=== PATIENT | female | born 1975 | race Two or more races ===

== ENCOUNTER 2016-07-26 06:05 | Inpatient (IN) | payer BC ==
[~2016-07-26] VITALS: Ht 152.4 cm; Wt 84.6 kg
[2016-07-26] VITALS (15 sets, daily range): BP systolic 101–120; BP diastolic 53–67; PULSE 60–79; RESP 18–20; Ht 152.4 cm; Wt 84.6 kg
[~2016-07-26 06:05] MED LIST: ACET500C5 PO; CALC600T11 PO; FERR325C PO; NITR-58 PO; PRENAT PO
[2016-07-26] MEDS ORDERED: TERBUTALINE 1 MG/ML INJ SC ONE (06:41)
[2016-07-26] MEDS ORDERED: LACTATED RINGER'S 1,000 ML IV ONE (07:00)
[2016-07-26] MEDS ORDERED: MISOPROSTOL 200 MCG TAB PR PRN ×2 (07:00→09:30)
[2016-07-26] MEDS ORDERED: OXYTOCIN 30 UNITS/LR 500 ML BAG IV ONE (07:00)
[2016-07-26] MEDS ORDERED: CEFAZOLIN 2 GM/50 ML (PMX) 50 ML IV SCH (07:00)
[2016-07-26] MEDS ORDERED: METHYLERGONOVINE 0.2 MG INJ IM PRN ×2 (07:00→09:30)
[2016-07-26] MEDS ORDERED: OXYTOCIN 30 UNITS/LR 500 ML IV PRN ×2 (07:00→09:30)
[2016-07-26] MEDS ORDERED: TERBUTALINE 1 MG/ML INJ SC PRN (07:00)
[2016-07-26] MEDS ORDERED: CARBOPROST 250 MCG INJ IM PRN ×2 (07:00→09:30)
[2016-07-26] MEDS ORDERED: OXYTOCIN 30 UNITS/LR 500 ML IV SCH (07:00)
[2016-07-26] MEDS ORDERED: LACTATED RINGER'S 1,000 ML IV* SCH (07:00)
[2016-07-26 07:22] LABS: ADD UMIC YES; URINE BILIRUBIN (Dip) NEGATIVE (NEGATIVE); URINE BLOOD (Dip) 2+ (NEGATIVE); URINE COLOR LT. YELLOW (YELLOW); URINE GLUCOSE (Dip) NEGATIVE (NEGATIVE); URINE KETONES (Dip) 40 (NEGATIVE); URINE LEUKOCYTE ESTERASE (Dip) TRACE (NEGATIVE); URINE NITRITE (Dip) NEGATIVE (NEGATIVE); URINE TOTAL PROTEIN (Dip) NEGATIVE (NEGATIVE); URINE UROBILINOGEN (Dip) 0.2 E.U./dL (0.1-1.0)
[2016-07-26] MEDS ORDERED: FOL8 PO (07:24)
[2016-07-26] MEDS ORDERED: FERR325C PO (07:24)
[2016-07-26 07:26] LABS: BASOPHILS % 0.3 % (0.0-2.0); EOSINOPHILS # 0.3 10^3/ul (0.0-0.5); EOSINOPHILS % 3.2 % (0.0-7.0); HEMATOCRIT 31.7 % (37.0-47.0); LYMPHOCYTES # 1.3 10^3/ul (0.8-2.9); MEAN CORPUSCULAR HGB CONC 34.7 g/dl (32.0-37.0); MEAN CORPUSCULAR VOLUME 86.5 fl (82.0-101.0); MEAN PLATELET VOLUME 9.6 fl (7.4-10.4); MONOCYTE # 0.3 10^3/ul (0.3-0.9); MONOCYTES % 3.9 % (0.0-11.0); NEUTROPHIL # 6.8 10^3/ul (1.6-7.5); NEUTROPHILS % 77.6 % (39.0-77.0); PLATELET COUNT 196 10^3/UL (140-440); RED BLOOD COUNT 3.67 10^6/ul (4.20-5.40); RED CELL DISTRIBUTION WIDTH 14.3 % (11.5-14.5); UNCORRECTED WBC 8.7 10^3/ul (4.8-10.8); WHITE BLOOD COUNT 8.7 10^3/ul (4.8-10.8)
[2016-07-26 07:29] LABS: INR 0.95; PROTIME 12.7 Sec (12.2-14.2)
[2016-07-26 07:30] LABS: PARTIAL THROMBOPLASTIN TIME 26.6 Sec (25.0-35.0)
[2016-07-26] MEDS ORDERED: AMPICILLIN 2 GM/NS (PMX) 100 ML IVPB ONE (07:30)
[2016-07-26] MEDS ORDERED: BETAMET NA PHOS/AC(6 MG/ML) 5ML INJ IM ONE (07:30)
--- NOTE | 2016-07-26 07:33 | TRIAGE ---
OB Triage Datetime Report Generated by CPN: 07/26/2016 07:32 Datetime: 07/26/2016 07:02 Vaginal Exam Dilatation (cms): 5.0 Datetime: 07/26/2016 07:00 Time of Arrival: 07/26/2016 07:00 EGA: 34.1 Arrived By: Ambulatory Arrived From: Home Datetime: 07/26/2016 06:55 Vaginal Exam Dilatation (cms): 5.0 Effacement (%): 90 Station: -1 Exam By: Jonathon,RN Cervix, Consistency: Soft Cervix, Position: Midposition Datetime: 07/26/2016 06:40 Membrane Status: Intact Datetime: 07/26/2016 06:26 Stage of : OB Triage Assessment Type: Triage Maternal Assessment Level of Consciousness: Fully Conscious DTR's/Clonus: DTRs 2+; No Clonus Headache: Denies Blurred Vision: No Respiratory Effort: Unlabored; Regular Rhythm; Equal Expansion Breath Sounds, Left: Clear and Equal Breath Sounds, Right: Clear and Equal Nausea/Vomiting: Denies RUQ Epigastric Pain: Denies Lower Extremities Edema: None Degree: None Upper Extremities Edema: None Degree: None Facial Edema: None Temperature Route: Oral Fall Risk Assessment History of Falling: (0) No Secondary Diagnosis: (0) No Ambulatory Aid: (0) Bedrest/Nurse Assist IV Therapy: (0) No Gait: (0) Normal/Bedrest/Immobile Mental Status: (0) Oriented to Own Ability Fall Score: 0 Fall Risk Score Definition: No Risk: No action required Pain Assessment Pain Scale: 9 Pain Presence: Intermittent Pain Type: Cramping; Contraction Pain Location: Abdomen; Back Pain Relief Measures: Comfort Measures Datetime: 07/26/2016 06:23 Time of Arrival: 07/26/2016 06:05 EGA: 34.1 Arrived By: Wheelchair Arrived From: Home Chief Complaint: UCs q5mins since 0200 Movement: Present Contractions: Regular Time Contractions Began: 07/26/2016 02:00 Contractions: q5mins Rupture of Membranes: Denies Vaginal Bleeding: Small Vaginal Discharge: Present Abdominal Trauma: Not Applicable Patient Complaints: Contractions; Cramping Time Provider Notified: 07/26/2016 06:34 Provider Notified: Initial Plan: IV hydration, UA, urine culture, urine tox Datetime: 07/21/2016 12:11 Stage of : OB Triage Labor Evaluation Frequency: 0 Monitor Mode: External Resting Tone [place]: Relaxed Heart Rate FHR Baseline Rate: 130 Monitor Mode: External US Variability: Moderate 6-25 bpm Accelerations: 15X15 Decelerations: None Category: Category I Datetime: 07/21/2016 11:33 Assessment Type: Triage Maternal Assessment Level of Consciousness: Fully Conscious DTR's/Clonus: DTRs 1+; No Clonus Headache: Denies Blurred Vision: No Respiratory Effort: Unlabored Breath Sounds, Left: Clear and Equal Breath Sounds, Right: Clear and Equal Nausea/Vomiting: Hx of Nausea/Vomiting (Annotations: X1 VOMITING IN AM) RUQ Epigastric Pain: Denies Lower Extremities Edema: None Degree: None Upper Extremities Edema: None Degree: None Facial Edema: None Fall Risk Assessment History of Falling: (0) No Secondary Diagnosis: (15) Yes (Annotations: CS X 1 HX OF CYSTS X 2. Pt denies ovarian cysts, states she does not know exactly where, but was told on L sie of lower abdomen) Ambulatory Aid: (0) Bedrest/Nurse Assist IV Therapy: (0) No Gait: (10) Weak Mental Status: (0) Oriented to Own Ability Fall Score: 25 Fall Risk Score Definition: Low Risk: Please see standard fall prevention interventions Datetime: 07/21/2016 11:28 Time of Arrival: 07/21/2016 11:06 EGA: 33.3 Arrived By: Ambulatory Arrived From: Home Chief Complaint: L sided low back pain Movement: Present Contractions: Denies/Absent Rupture of Membranes: Denies Vaginal Bleeding: None Vaginal Discharge: Denies Recent Sexual Intercouse: Denies Abdominal Trauma: Not Applicable Patient Complaints: Back Pain Time Provider Notified: 07/21/2016 11:33 Provider Notified: ESHAHEMALN Initial Plan: VS, EFM, Datetime: 07/21/2016 11:23 Stage of : OB Triage Monitor Mode: External Monitor Mode: External US Datetime: 07/21/2016 11:12 Stage of : OB Triage Datetime: 07/20/2016 07:35 EGA: 33.2 Datetime: 07/20/2016 07:26 Fall Score: 0 Fall Risk Score Definition: No Risk: No action required Datetime: 05/11/2016 17:57 Fall Score: 0 Fall Risk Score Definition: No Risk: No action required Datetime: 05/11/2016 17:48 EGA: 23.2
[2016-07-26 07:38] LABS: CONDITION 1
[2016-07-26 07:45] LABS: BARBITURATES NEGATIVE (NEGATIVE); BENZODIAZEPINES NEGATIVE (NEGATIVE); CANNABINOIDS NEGATIVE (NEGATIVE); COCAINE NEGATIVE (NEGATIVE); OPIATES NEGATIVE (NEGATIVE)
--- NOTE | 2016-07-26 07:47 | TRIAGE ---
OB Triage Datetime Report Generated by CPN: 07/26/2016 07:46 Datetime: 07/26/2016 07:00 EGA: 34.1 Frequency: 1-8 Monitor Mode: External Duration (sec)2399: 40-150 Quality: Moderate Pattern: Normal: <= 5 Contractions in 10 Minutes Resting Tone [place]: Relaxed FHR Baseline Rate: 150 Monitor Mode: External US Variability: Moderate 6-25 bpm Accelerations: 15X15 Decelerations: Early; Variable Category: Category II Datetime: 07/26/2016 06:34 Stage of : OB Triage
[2016-07-26 07:50] LABS: BACTERIA,URINE MODERATE
[2016-07-26] MEDS ORDERED: morphine SULFATE/PF (10 MG/10 ML) INJ ONE (08:08)
[2016-07-26] MEDS ORDERED: ONDANSETRON 4 MG INJ ONE (08:08)
[2016-07-26] MEDS ORDERED: OXYTOCIN 10 UNIT INJ ONE (08:08)
[2016-07-26] MEDS ORDERED: PHENYLephrine (100 MCG/ML) 5ML SYG ONE (08:08)
--- NOTE | 2016-07-26 08:37 | PREOPHP ---
DATE OF ADMISSION: 07/26/2016 HISTORY OF PRESENT ILLNESS: Ms. Arielle Delgadillo is a 41-year-old 2, para 1, EDC 09/05/2016 intrauterine at 34 weeks gestational age, presented to triage complaining of contractions since 2:00 this morning with vaginal spotting. In triage, she was examined to be 5 cm dilated, 90% effaced, -1 station. The patient is halie regularly, and she has a significant history 1 pre vious section. After explaining the risks, benefits, and alternatives, the patient agreed for a repeat delivery. Her care, according to the patient, took place at [facility]. PAST MEDICAL HISTORY: None. MEDICATIONS: 1. vitamins. 2. Calcium 3. Iron. 4. Folic acid. PAST SURGICAL HISTORY: x1 previous in 2014. OBSTETRIC HISTORY: x1 previous section. GYNECOLOGIC HISTORY: 13, regular, 3 to 4 days. History of fibroid uterus. Sexually active with 1 partner. SOCIAL HISTORY: Denies any smoking, drugs, or alcohol. FAMILY HISTORY: None. PHYSICAL EXAMINATION: HEENT: Within normal. LUNGS: CTA bilateral. CARDIOVASCULAR: S1, S2, regular rate, rhythm. ABDOMEN: Gravid, positive lower abdominal tenderness. Negative CVA bilateral. EXTREMITIES: Negative edema. No calf tenderness. VAGINAL: 5 cm dilated, 90% effaced, -1 station. ASSESSMENT: A 41-year-old 2, para 1, intrauterine at 34 weeks gestational age, pr eterm labor, previous section x1, advanced maternal age, desires an elective repeat cesarea n delivery versus vaginal after . PLAN: Consent for a repeat delivery. GBS prophylaxis, steroid treatment. Risks, benefits and alternatives explained. All questions were answered. Dictated By: RACHEL NICHOLAS/MAGDA Conf#: [id number] DID#: [id number]
[2016-07-26] MEDS ORDERED: FENTAnyl 50 MCG/ML VIAL ONE (08:44)
[2016-07-26 09:02] LABS: CBV Base Excess -2.6 mmol/L; Cord Blood Venous pO2 30.7 mmHG (15.0-45.0); MODE ROOM AIR; Sample Type CBV
[2016-07-26 09:03] LABS: AADO2 Cord Arterial 69.7 mmHg; Arterial Cord Blood pCO2 52.9 mmHG (25-50); CBA Base Excess -1.4 mmol/L; Cord Blood Arterial pO2 16.7 mmHG (15.0-45.0); MODE ROOM AIR; Sample Type CBA
[2016-07-26] MEDS: LACTATED RINGER'S 1,000 ML IV SCH ×3 (09:06→22:21)
[2016-07-26] MEDS: CEFAZOLIN 2 GM/50 ML (PMX) 50 ML IV SCH ×2 (09:23→17:18)
[2016-07-26] MEDS ORDERED: OXYCODONE/ACETAMINOPHEN (5/325) TAB PO PRN (09:30)
[2016-07-26] MEDS ORDERED: LANOLIN 7 GM TUBE TOP PRN (09:30)
--- NOTE | 2016-07-26 09:38 | OPRPT ---
Intraop Record Datetime Report Generated by CPN: 07/26/2016 09:38 Datetime: 07/26/2016 09:15 Sequential Compression Device: Yes Datetime: 07/26/2016 08:36 OR Number: 2 TIMES/PROCEDURE Arrive OR: 07/26/2016 08:05 Depart OR: 07/26/2016 09:12 Anesthesia Start: 07/26/2016 07:55 Anesthesia End: 07/26/2016 09:15 Surgery Start: 07/26/2016 08:29 Surgery End: 07/26/2016 09:04 Preoperative Dx: Repeat Surgical Procedure: Section Postoperative Dx: Post C/S Decision Time: 07/26/2016 07:00 C/S Decision to Incision (min): 89 Uterine Incision: 07/26/2016 08:29 PERSONNEL Surgeon: Alexander Braga Scrub: Michelle Escobar Anesthesia Care Provider: Artur Lambert Infant Care: See Delivery Summary for Care Providers Anesthesia Type: Spinal ASA Level: II RISK FOR INJURY Mode of Arrival: [place] Procedure Time Out: Correct Patient Identity; Correct Side and Site are Marked (if applicable); Acc urate Procedure Consent Form; Agreement on Procedure to be Done; Correct Patient Position; Relevant Images and Results are Properly Labeled and Displayed; Addressed Need to Administer Antibiotics or F luids for Irrigation; Safety Precautions Based on Patient History or Medication Use; Allergies Revie wed Preoperative Information: Preoperative Checklist Reviewed; Allergies Reviewed; NPO Status Verified RISK FOR ANXIETY/KNOW DEFICIT Emotional Status: Calm/Relaxed; Anxious Interventions: Provided Education Based on Age and Identified Needs; Communicated Patient Concerns to Appropriate Members of the Health Care Team; Explained Sequence of Events and Perioperative Routi ne; Evaluated Response to Instructions RISK FOR PAIN Pain Teaching: Instructed on Pain Scale Pain Scale: 9.0 Pain Location: Abdomen PREOPERATIVE OUTCOMES Preoperative Outcomes: Verbalizes/Indicates Decreased Anxiety, Ability to [place], Understanding of Pr ocedure and Sequence of Events. Questions Answered; Demonstrates Adequate Pain Management; Verbaliz es Comfort Related to Transfer/Transport RISK FOR INFECTION Skin Pre-Operative Site: Intact Clip: Clip Clip Location: Closed lower abdomen Prep: Yes Prep By: Marcela Sanchez RN Prep Solution: Povidone Iodine Catheter: Arnold Catheter Size: 16 Catheter Inserted By: Marcela Sanchez RNdomestic travel consultant Wound Class: I-Clean Dressing Type: Secured Gauze; Other Other Dressing Types: ABD/TELFA Risk for Impaired Skin Integrity Position in OR: Supine Bony Prominences Protection: Arms Tucked/Padded Positioning Devices: Leg [place] Risk for Hypothermia Warming Interventions: Warm [place](s); Warm Irrigation Risk for Injury Safety Straps Applied: Legs Sequential Compression Device: Yes Electrosurgical Unit: Yes Electrosurgical Unit Number: Lot #[id number] Exp:05/10/2018 Bipolar Number: [id number] Ground Pad Location: Right Lateral Thigh Coag Number: 55 Cut Number: 55 Estimated Blood Loss- OR (ml): 500 1st Count Sponge Count: Correct Needle Count: Correct Blade Count: Correct Instrument Count: Correct 2nd Count Sponge Count: Correct Needle Count: Correct Blade Count: Correct Instrument Count: Correct 3rd Count Sponge Count: Correct Needle Count: Correct Blade Count: Correct Instrument Count: Correct Final Count Sponge Count 4: Correct Needle Count 4: Correct Blade Count 4: Correct Instrument Count 4: Correct Surgeon Acknowledged Count: Yes Final Count Resolution: Count Correct Intraoperative Data Equipment: Non-Invasive Blood Pressure; Pulse Oximeter; EKG Blood Products Given: N/A Implants/Prosthesis Implants/Prosthesis: N/A Grafts: N/A Irrigation Irrigants: NACL; Sterile H2O Irrigation Amount: 2L Specimens Specimens: Yes Specimen Type: Placenta Specimen Type: L ovarian mass Cultures Cultures: N/A Postoperative Skin: Warm; Dry Pain Scale: 0 Condition: Awake; Alert Temperature: 97.9 Operative Outcomes: Patient's Surgery Performed Using Aseptic Technique and in a Manner to Prevent Cross-Contamination; Skin Remains Smooth, Intact, Non-reddened, Non-irritated, Free of Bruising; Cor e Body Temperature Remains in Expected Range Transfer To: L_D Other: L_D PACU Report Given to: Sade RN Datetime: 07/26/2016 06:39 Drug Allergies/Reactions: No Known Allergy (07/26/2016) Datetime: 07/20/2016 07:28 Drug Allergies/Reactions: No Known Allergy (07/20/2016) Datetime: 05/11/2016 18:02 Drug Allergies/Reactions: No Known Allergy (05/11/2016) Datetime: 05/11/2016 17:48 Drug Allergies/Reactions: DENIES Food Allergies/Reactions: DENIES Latex Allergies/Reactions: No Latex Allergies
--- NOTE | 2016-07-26 09:38 | DELSUM ---
Delivery Summary A-C Datetime Report Generated by CPN: 07/26/2016 09:38 DELIVERY PERSONNEL Senior Business Intelligence Analyst: Mao, Wendi MATERNAL INFORMATION Delivery Anesthesia: Spinal Medications in Delivery: See Anesthesia notes Estimated Blood Loss (ml): 500 Placenta Cultured: Yes Maternal Complications: None LABOR SUMMARY EDC: 09/05/2016 00:00 No. Babies in Womb: 1 Attempted: No Labor Anesthesia: None LABOR INFORMATION Reason for Induction: Not Applicable Onset of Labor: 07/26/2016 02:00 Oxytocin: N/A Group B Beta Strep: Not Done Antibiotics # of Doses: 2 Antibiotics Time of Last Dose: 0820 Steroids Given: None Reason Steroids Not Administered: Not Applicable MEMBRANES Membranes Rupture Method: Artificial Rupture of Membranes: 07/26/2016 08:32 Length of Rupture (hr): 0.02 Amniotic Fluid Color: Clear Amniotic Fluid Amount: Moderate Amniotic Fluid Odor: Normal STAGES OF LABOR Stage 3 hr: 0 Stage 3 min: 1 Total Time in Labor hr: 6 Total Time in Labor min: 34 CSECTION DELIVERY Primary Indication: Repeat Elective Secondary Indication: N/A CSection Urgency: Emergency CSection Incidence: Repeat Labor: Labor Elective: Elective CSection Incision: Lower Uterine Transverse BABY A INFORMATION Infant Delivery Date/Time: 07/26/2016 08:33 Method of Delivery: Born in Route : No : N/A Forceps: N/A Vacuum Extraction: N/A Shoulder Dystocia : No SHOULDER DYSTOCIA BABY A Infant Delivery Date/Time: 07/26/2016 08:33 PRESENTATION/POSITION BABY A Presentation: Cephalic Cephalic Presentation: Vertex Vertex Position: Right Occipital Posterior Breech Presentation: N/A PLACENTA INFORMATION BABY A Placenta Delivery Time : 07/26/2016 08:34 Placenta Method of Delivery: Manual Removal Placenta Status: Delivered SCORES BABY A Heart Rate 1 min: >100 bpm Resp Effort 1 min: Good Cry Reflex Irritability 1 min: Cough/Sneeze/Pulls Away Muscle Tone 1 min: Active Motion Color 1 min: Blue/Pale Resuscitation Effort 1 min: Tactile Stimulation SCORE 1 MIN: 8 Heart Rate 5 min: >100 bpm Resp Effort 5 min: Good Cry Reflex Irritability 5 min: Cough/Sneeze/Pulls Away Muscle Tone 5 min: Active Motion Color 5 min: Body [place], Extremit Blue Resuscitation Effort 5 min: Tactile Stimulation SCORE 5 MIN: 9 INFORMATION BABY A Gestational Age at Delivery: 34.1 Gestational Status: Late - 34- 36.6 Weeks Infant Outcome : Liveborn Infant Condition : Stable Infant Sex: Female IDENTIFICATION/MEDS BABY A ID Band Number: [id number] ID Band Location: Right Leg; Left Arm Sensor Applied: N/A Vitamin K Given : Not Given Erythromycin Given: Not Given WEIGHT/LENGTH BABY A Infant Birthweight (gm): 2540 Infant Weight (lb): 5 Weight (oz): 10 Length (in): 18.50 Infant Length (cm): 46.99 CORD INFORMATION BABY A No. Cord Vessels: 3 Nuchal Cord : N/A Cord Blood Taken: Yes Suction: Mouth; Nose ASSESSMENT BABY A Infant Complications: None Physical Findings at Delivery: Within Normal Limits Respirations: Appears Normal Value Analyst/ALS Called : No Infant Care By: Sherrill Villa RN Transferred To: NICU
--- NOTE | 2016-07-26 09:40 | DELSUM ---
Delivery Summary A-C Datetime Report Generated by CPN: 07/26/2016 09:40 DELIVERY PERSONNEL Directional Bore Operator: Mao, Wendi MATERNAL INFORMATION Delivery Anesthesia: Spinal Medications in Delivery: See Anesthesia notes Estimated Blood Loss (ml): 500 Placenta Cultured: Yes Maternal Complications: None LABOR SUMMARY EDC: 09/05/2016 00:00 No. Babies in Womb: 1 Attempted: No Labor Anesthesia: None LABOR INFORMATION Reason for Induction: Not Applicable Onset of Labor: 07/26/2016 02:00 Oxytocin: N/A Group B Beta Strep: Not Done Antibiotics # of Doses: 2 Antibiotics Time of Last Dose: 0820 Steroids Given: None Reason Steroids Not Administered: Not Applicable MEMBRANES Membranes Rupture Method: Artificial Rupture of Membranes: 07/26/2016 08:32 Length of Rupture (hr): 0.02 Amniotic Fluid Color: Clear Amniotic Fluid Amount: Moderate Amniotic Fluid Odor: Normal STAGES OF LABOR Stage 3 hr: 0 Stage 3 min: 1 Total Time in Labor hr: 6 Total Time in Labor min: 34 CSECTION DELIVERY Primary Indication: Repeat Elective Secondary Indication: N/A CSection Urgency: Emergency CSection Incidence: Repeat Labor: Labor Elective: Elective CSection Incision: Lower Uterine Transverse BABY A INFORMATION Infant Delivery Date/Time: 07/26/2016 08:33 Method of Delivery: Born in Route : No : N/A Forceps: N/A Vacuum Extraction: N/A Shoulder Dystocia : No SHOULDER DYSTOCIA BABY A Infant Delivery Date/Time: 07/26/2016 08:33 PRESENTATION/POSITION BABY A Presentation: Cephalic Cephalic Presentation: Vertex Vertex Position: Right Occipital Posterior Breech Presentation: N/A PLACENTA INFORMATION BABY A Placenta Delivery Time : 07/26/2016 08:34 Placenta Method of Delivery: Manual Removal Placenta Status: Delivered SCORES BABY A Heart Rate 1 min: >100 bpm Resp Effort 1 min: Good Cry Reflex Irritability 1 min: Cough/Sneeze/Pulls Away Muscle Tone 1 min: Active Motion Color 1 min: Blue/Pale Resuscitation Effort 1 min: Tactile Stimulation SCORE 1 MIN: 8 Heart Rate 5 min: >100 bpm Resp Effort 5 min: Good Cry Reflex Irritability 5 min: Cough/Sneeze/Pulls Away Muscle Tone 5 min: Active Motion Color 5 min: Body [place], Extremit Blue Resuscitation Effort 5 min: Tactile Stimulation SCORE 5 MIN: 9 INFORMATION BABY A Gestational Age at Delivery: 34.1 Gestational Status: Late - 34- 36.6 Weeks Infant Outcome : Liveborn Infant Condition : Stable Infant Sex: Female IDENTIFICATION/MEDS BABY A ID Band Number: [id number] ID Band Location: Right Leg; Left Arm Sensor Applied: N/A Vitamin K Given : Not Given Erythromycin Given: Not Given WEIGHT/LENGTH BABY A Infant Birthweight (gm): 2540 Infant Weight (lb): 5 Weight (oz): 10 Length (in): 18.50 Infant Length (cm): 46.99 CORD INFORMATION BABY A No. Cord Vessels: 3 Nuchal Cord : N/A Cord Blood Taken: Yes Suction: Mouth; Nose ASSESSMENT BABY A Infant Complications: None Physical Findings at Delivery: Within Normal Limits Respirations: Appears Normal Medical Office Technologist/ALS Called : No Infant Care By: Sherrill Villa RN Transferred To: NICU
[2016-07-26] MEDS ORDERED: ONDANSETRON 4 MG INJ IV PRN (10:00)
[2016-07-26] MEDS ORDERED: DIPHENHYDRAMINE 50 MG INJ IV PRN (10:00)
[2016-07-26] MEDS ORDERED: NALOXONE (0.4 MG/ML) INJ IV PRN (10:00)
[2016-07-26] MEDS ORDERED: morphine 2 MG INJ IV PRN (10:00)
--- NOTE | 2016-07-26 10:24 | OPRPT ---
Intraop Record Datetime Report Generated by CPN: 07/26/2016 10:23 Datetime: 07/26/2016 10:00 Sequential Compression Device: Yes Datetime: 07/26/2016 09:45 Sequential Compression Device: Yes Datetime: 07/26/2016 09:30 Sequential Compression Device: Yes Datetime: 07/26/2016 08:36 C/S Decision to Incision (min): 89
[2016-07-26] MEDS ORDERED: KETOROLAC 30 MG INJ IV PRN (12:00)
[2016-07-26] MEDS: IBUPROFEN 600 MG TAB PO SCH (12:00)
[2016-07-26] MEDS: KETOROLAC 30 MG INJ IV PRN ×2 (12:02→17:19)
--- NOTE | 2016-07-26 13:09 | DELSUM ---
Delivery Summary A-C Datetime Report Generated by CPN: 07/26/2016 13:09 DELIVERY PERSONNEL Micropaleontologist: Mao, Wendi MATERNAL INFORMATION Delivery Anesthesia: Spinal Medications in Delivery: See Anesthesia notes Estimated Blood Loss (ml): 500 Placenta Cultured: Yes Maternal Complications: None LABOR SUMMARY EDC: 09/05/2016 00:00 No. Babies in Womb: 1 Attempted: No Labor Anesthesia: None LABOR INFORMATION Reason for Induction: Not Applicable Onset of Labor: 07/26/2016 02:00 Oxytocin: N/A Group B Beta Strep: Not Done Antibiotics # of Doses: 2 Antibiotics Time of Last Dose: 0820 Steroids Given: Partial Course Reason Steroids Not Administered: Indication MEMBRANES Membranes Rupture Method: Artificial Rupture of Membranes: 07/26/2016 08:32 Length of Rupture (hr): 0.02 Amniotic Fluid Color: Clear Amniotic Fluid Amount: Moderate Amniotic Fluid Odor: Normal STAGES OF LABOR Stage 3 hr: 0 Stage 3 min: 1 Total Time in Labor hr: 6 Total Time in Labor min: 34 CSECTION DELIVERY Primary Indication: Repeat Elective Secondary Indication: N/A CSection Urgency: Emergency CSection Incidence: Repeat Labor: Labor Elective: Elective CSection Incision: Lower Uterine Transverse BABY A INFORMATION Delivery Date/Time: 07/26/2016 08:33 Method of Delivery: Born in Route : No : N/A Forceps: N/A Vacuum Extraction: N/A Shoulder Dystocia : No SHOULDER DYSTOCIA BABY A Delivery Date/Time: 07/26/2016 08:33 PRESENTATION/POSITION BABY A Presentation: Cephalic Cephalic Presentation: Vertex Vertex Position: Right Occipital Posterior Breech Presentation: N/A PLACENTA INFORMATION BABY A Placenta Delivery Time : 07/26/2016 08:34 Placenta Method of Delivery: Manual Removal Placenta Status: Delivered SCORES BABY A Heart Rate 1 min: >100 bpm Resp Effort 1 min: Good Cry Reflex Irritability 1 min: Cough/Sneeze/Pulls Away Muscle Tone 1 min: Active Motion Color 1 min: Blue/Pale Resuscitation Effort 1 min: Tactile Stimulation SCORE 1 MIN: 8 Heart Rate 5 min: >100 bpm Resp Effort 5 min: Good Cry Reflex Irritability 5 min: Cough/Sneeze/Pulls Away Muscle Tone 5 min: Active Motion Color 5 min: Body [place], Extremit Blue Resuscitation Effort 5 min: Tactile Stimulation SCORE 5 MIN: 9 INFANT INFORMATION BABY A Gestational Age at Delivery: 34.1 Gestational Status: Late - 34- 36.6 Weeks Infant Outcome : Liveborn Infant Condition : Stable Sex: Female IDENTIFICATION/MEDS BABY A ID Band Number: [id number] ID Band Location: Right Leg; Left Arm Sensor Applied: N/A Vitamin K Given : Not Given Erythromycin Given: Not Given WEIGHT/LENGTH BABY A Birthweight (gm): 2540 Infant Weight (lb): 5 Weight (oz): 10 Infant Length (in): 18.50 Infant Length (cm): 46.99 CORD INFORMATION BABY A No. Cord Vessels: 3 Nuchal Cord : N/A Cord Blood Taken: Yes Suction: Mouth; Nose ASSESSMENT BABY A Infant Complications: None Physical Findings at Delivery: Within Normal Limits Infant Respirations: Appears Normal Boat Cleaner/ALS Called : No Infant Care By: Sherrill Villa RN Transferred To: NICU
[2016-07-26] MEDS: SENNA/DOCUSATE NA (8.6MG/50MG) TAB PO SCH (20:35)
[2016-07-26] MEDS: NITROFURANTOIN (SR) 100 MG CAP PO SCH (20:35)
[2016-07-27] MEDS: KETOROLAC 30 MG INJ IV PRN (00:12)
[2016-07-27] MEDS: CEFAZOLIN 2 GM/50 ML (PMX) 50 ML IV SCH (03:09)
[2016-07-27 03:16] VITALS: BP 100/47; PULSE 57; RESP 18
[2016-07-27] MEDS: LACTATED RINGER'S 1,000 ML IV SCH ×2 (06:07→17:06)
[2016-07-27 08:04] LABS: BASOPHILS % 0.1 % (0.0-2.0); EOSINOPHILS % 0.1 % (0.0-7.0); HEMATOCRIT 28.4 % (37.0-47.0); HEMOGLOBIN 9.6 g/dl (12.0-16.0); LYMPHOCYTES # 1.2 10^3/ul (0.8-2.9); LYMPHOCYTES % 11.5 % (15.0-51.0); MEAN CORPUSCULAR HEMOGLOBIN 29.5 pg (29.0-33.0); MEAN CORPUSCULAR HGB CONC 33.9 g/dl (32.0-37.0); MEAN CORPUSCULAR VOLUME 87.1 fl (82.0-101.0); MEAN PLATELET VOLUME 9.3 fl (7.4-10.4); MONOCYTE # 0.3 10^3/ul (0.3-0.9); MONOCYTES % 3.4 % (0.0-11.0); NEUTROPHIL # 8.6 10^3/ul (1.6-7.5); NEUTROPHILS % 84.9 % (39.0-77.0); PLATELET COUNT 185 10^3/UL (140-440); RED BLOOD COUNT 3.26 10^6/ul (4.20-5.40); RED CELL DISTRIBUTION WIDTH 13.8 % (11.5-14.5); UNCORRECTED WBC 10.1 10^3/ul (4.8-10.8); WHITE BLOOD COUNT 10.1 10^3/ul (4.8-10.8)
[2016-07-27 08:09] LABS: CONDITION 1
[2016-07-27 08:30] VITALS: BP 116/55; PULSE 57; RESP 16
[2016-07-27] MEDS: NITROFURANTOIN (SR) 100 MG CAP PO SCH ×2 (09:27→21:05)
[2016-07-27] MEDS: OXYCODONE/ACETAMINOPHEN (5/325) TAB PO PRN ×2 (09:28→16:19)
[2016-07-27] MEDS: SENNA/DOCUSATE NA (8.6MG/50MG) TAB PO SCH ×2 (09:28→21:05)
[2016-07-27] MEDS: IBUPROFEN 600 MG TAB PO SCH ×3 (12:37→23:02)
[2016-07-27 16:20] VITALS: BP 102/50; PULSE 64; RESP 16
--- NOTE | 2016-07-27 17:20 | OPR ---
DATE OF OPERATION: 07/26/2016 PREOPERATIVE DIAGNOSES: A 41-year-old 2, para 1, intrauterine at 34 weeks gestational age, labor, advanced maternal age, previous x1, desires elective repeat delivery, declined POSTOPERATIVE DIAGNOSES: A 41-year-old 2, para 1, intrauterine at 34 weeks gestational age, labor, advanced maternal age, previous x1, desires elective repeat delivery, declined , left ovarian mass. OPERATION PERFORMED: Repeat low transverse delivery with left oophorectomy. (Oral Consent for left ovary was obtained during surgery) SURGEON: Alexander Braga MD PILLOW AGENT: Dr. Bojorquez FINDINGS: A viable female, 8 and 9, respectively at 1 and 5 minutes. Weight 5 pounds 10 ounces. An 8 x 6 cm left ovarian mass noted. ESTIMATED BLOOD LOSS: 500 mL. SPECIMEN: Left ovarian mass. COMPLICATIONS OF PROCEDURE: None. TYPE OF ANESTHESIA: Spinal. DESCRIPTION OF PROCEDURE: After explaining the risks, benefits and alternatives , the patient had consent signed in chart. The patient was taken to the operating room where spinal anesthesia was found to be adequate. She was then prepared and draped in a normal sterile fashion, dorsal supine position with a leftward tilt. A Pfannenstiel skin incision was then made with a scalpel and carried to the underlying layer of the fascia. The fascia was incised in the midline and the incision was extended laterally with Vásquez scissors. The superior aspect of the fascial incision was grasped with Prudencio clamps, elevated and the underlying rectus muscles dissected off bluntly. Attention was then turned to the inferior aspect of the incision, which in similar fashion was grasped, tented up with Prudencio clamps and the rectus muscles dissected off bluntly. The rectus muscle was in midline, peritoneum identified, tented up and entered sharply with Metzenbaum scissors. The peritoneal incision was extended superiorly and inferiorly with good visualization of the bladder. The bladder blade was then inserted and the vesicouterine peritoneum identified, grasped with pickups and entered sharply with Metzenbaum scissors. This incision was extended laterally and the bladder flap created digitally. The bladder blade was then reinserted and the lower segment incised in a transverse fashion with a scalpel. The uterine incision was extended laterally. The bladder blade was removed and the infant's head delivered atraumatically. The nose and mouth were suctioned and cord clamped and cut. The infant was handed off to awaiting obstetrics scrub nurse. The placenta was then removed. The uterus exteriorized, cleared of all clots and debris. The uterine incision was repaired with 1-0 chromic in a running locked fashion. A second layer of the same suture was used for imbrication obtaining excellent hemostasis. At this point, a left ovarian mass was noted, which was clamped at the base and ligated with a free tie of plain gut and excised. Good hemostasis was noted. Please note that before removing the left ovarian mass, an oral consent was taken from patient before removal. At this point, the uterus was returned to the abdomen. The gutters were cleared of all clots. The peritoneum and rectus abdominis muscles were reapproximated with 2-0 Vicryl in an interrupted fashion. The fascia was reapproximated with 0 Vicryl in a running fashion. The subcutaneous tissue was reapproximated with 2-0 plain gut in a running fashion. The skin was closed with nereida. The patient tolerated the procedure well. Sponge, lap and needle counts were correct x2. The patient was taken to recovery room in stable condition. Dictated By: ALEXANDER NICHOLAS/MAGDA Conf#: [id number] DID#: [id number]
--- NOTE | 2016-07-27 20:09 | QN ---
Documentation Comment attending not pod 1 patient seen and evaluated no complaints vs stable afebrile ab c/d/i no distention nt, uterine fundus firm below umbillicus extremity no edema no calf tenderness h/h 9.6/ 28.4 a/ s/p cs with left ovary removal pod 1 stable afebrile p/ iron supplement RACHEL AGUERO MD Jul 27, 2016 20:09
[2016-07-27 20:15] VITALS: BP 99/52; PULSE 73; RESP 18
[2016-07-27] MEDS: FERROUS SULFATE (EC) 325 MG TAB PO SCH (21:05)
[2016-07-28 03:45] VITALS: BP 122/74; PULSE 59; RESP 18
[2016-07-28] MEDS: IBUPROFEN 600 MG TAB PO SCH ×4 (05:45→23:16)
[2016-07-28 08:40] VITALS: BP 108/64; PULSE 62; RESP 16
[2016-07-28] MEDS: SENNA/DOCUSATE NA (8.6MG/50MG) TAB PO SCH ×2 (10:16→21:02)
[2016-07-28] MEDS: FERROUS SULFATE (EC) 325 MG TAB PO SCH ×2 (10:16→21:03)
[2016-07-28] MEDS: NITROFURANTOIN (SR) 100 MG CAP PO SCH ×2 (10:16→21:02)
[2016-07-28 15:59] VITALS: BP 113/68; PULSE 67; RESP 16
[2016-07-28 21:00] VITALS: BP 118/61; PULSE 71; RESP 18
--- NOTE | 2016-07-28 21:18 | QN ---
Documentation Comment attending not pod 2 patient seen and evaluated no complaints vs stable afebrile ab c/d/i no distention nt, uterine fundus firm below umbillicus extremity no edema no calf tenderness a/ s/p cs with left ovary removal pod 2 stable afebrile p/ encourage ambulation RACHEL AGUERO MD Jul 28, 2016 21:18
[2016-07-29] MEDS: LACTATED RINGER'S 1,000 ML IV SCH ×2 (01:06→09:06)
[2016-07-29 03:45] VITALS: BP 110/67; PULSE 62; RESP 18
[2016-07-29] MEDS: IBUPROFEN 600 MG TAB PO SCH ×4 (05:30→23:31)
--- NOTE | 2016-07-29 06:36 | PD.PPDC ---
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
[2016-07-29 08:10] VITALS: BP 111/59; PULSE 60; RESP 19
[2016-07-29] MEDS ORDERED: LANOLIN 7 GM TUBE TOP PRN (08:30)
[2016-07-29] MEDS: FERROUS SULFATE (EC) 325 MG TAB PO SCH ×2 (09:06→20:55)
[2016-07-29] MEDS: NITROFURANTOIN (SR) 100 MG CAP PO SCH ×2 (09:06→20:55)
[2016-07-29] MEDS: SENNA/DOCUSATE NA (8.6MG/50MG) TAB PO SCH ×2 (09:06→20:55)
[2016-07-29 15:50] VITALS: BP 107/59; PULSE 64; RESP 16
[2016-07-29 19:55] VITALS: BP 118/75; PULSE 62; RESP 18
--- NOTE | 2016-07-30 00:55 | DS ---
DATE OF ADMISSION: 07/26/2016 DATE OF DISCHARGE: 07/30/2016 PRIMARY DIAGNOSIS: A 41-year-old 2, para 1, intrauterine at 34 weeks' gestational age, labor, advanced maternal age, previous x1, desires elective deliver y, declined vaginal after . SECONDARY DIAGNOSES: Left ovarian mass. PROCEDURE: Repeat low transverse delivery with left oophorectomy. CONDITION ON DISCHARGE: Stable. ACTIVITY: None per vaginal, no heavy lifting x6 weeks. DIET: Regular. MEDICATIONS ON DISCHARGE: 1. Motrin. 2. Percocet. 3. Iron. 4. Colace. DISCHARGE SUMMARY: Ms. Arielle Delgadillo is a 41-year-old 2, para 2, status post repeat low transverse delivery with left oophorectomy on 07/26/2016. She had a viable female, Apgars 8 and 9 respectively at 1 and 5 minutes. Weight 5 pounds 10 ounces. 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 Patient had an uneventful postop day 1, 2, and 3. She will be disc harged on postop day #4. Her incision is clean, dry, and intact. She is ambulating, tolerating t, positive flatulence, positive bowel movement. She will follow up in the office this Sunday to maura calzada her nereida. Dictated By: RACHEL NICHOLAS/MAGDA Conf#: [id number] DID#: [id number]
[2016-07-30 04:10] VITALS: BP 133/79; PULSE 60; RESP 16
[2016-07-30] MEDS: LACTATED RINGER'S 1,000 ML IV SCH (05:47)
[2016-07-30] MEDS: IBUPROFEN 600 MG TAB PO SCH ×2 (05:48→11:00)
[2016-07-30 08:10] VITALS: BP 119/76; PULSE 67; RESP 18
[2016-07-30] MEDS: SENNA/DOCUSATE NA (8.6MG/50MG) TAB PO SCH (08:11)
[2016-07-30] MEDS: FERROUS SULFATE (EC) 325 MG TAB PO SCH (08:11)
[2016-07-30] MEDS: NITROFURANTOIN (SR) 100 MG CAP PO SCH (08:11)
== END 2016-07-30 15:29 | disposition home or self-care (01) | DRG 766 ==
LOC: OBT 06:05 → L-D 06:05 → OBT 07:14 → L-D 07:16 → PP1 12:47
PROVIDERS: ADMIT Obstetrics & Gynecology; ATTEND Obstetrics & Gynecology
PROC: 10D00Z1 Extraction of Products of Conception, Low, Open Approach (ICD-10-PCS; principal; 2016-07-26)
DX: O34.211 Maternal care for low transverse scar from previous cesarean delivery (principal); E66.01 Morbid (severe) obesity due to excess calories; O34.83 Maternal care for other abnormalities of pelvic organs, third trimester; O99.214 Obesity complicating childbirth; Z68.36 Body mass index [BMI] 36.0-36.9, adult; Z3A.40 40 weeks gestation of pregnancy; Z37.0 Single live birth
CPT/HCPCS: 36415; 36600; 80307; 81001; 81003; 82803; 85025; 85610; 85730; 86592; 86850; 86870; 86885; 86900; 86901; 87086; 87340; 88305; 88307; 99464; G0463; J0290; J0690; J0702; J1885; J2274; J2370; J2405; J2590; J2790; J3010; J7120